=== PATIENT | female | born 1940 | race Caucasian/White ===

== ENCOUNTER → 2017-02-01 | Day surgery (SDC) | payer OTHER ==
[~2017-02-01] MED LIST: BUPIVACAINE/EPINEPHRINE 0.5% 50 ML VIAL ONE; LACTATED RINGER'S 1000 ML INJ 1,000 ML ONE; ceFAZolin 2 GM PREMIX 50 ML ONE
== END | disposition home or self-care (01) ==
LOC: ESDC 08:30
PROVIDERS: ATTEND Surgery Trauma Surgery
DX: N63 Unspecified lump in breast (principal)
CPT/HCPCS: 99211; G0463; J0690; J7120

== ENCOUNTER → 2017-03-01 | Day surgery (SDC) | payer OTHER ==
[~2017-03-01] MED LIST changes: +ACETAMINOPHEN/HYDROcodone 325 MG/5 MG TAB ONE; -BUPIVACAINE/EPINEPHRINE 0.5% 50 ML VIAL ONE; +BUPIVACAINE/EPINEPHRINE 0.5% PF 30 ML VIAL ONE; +ISOSULFAN BLUE 50 MG/5 ML VIAL SQ ONE; +MIDAZOLAM HCL 2 MG/2 ML VIAL ONE; +MORPHINE SULFATE 4 MG/ML INJ ONE; +NEOMYCIN/POLYMYXIN/BACITRACIN OINT 15 GM TUBE ONE; +ONDANSETRON HCL 4 MG/2 ML VIAL IV PUSH ONE; +PROPOFOL 200 MG/20 ML AMP IV ONE
--- NOTE | 2017-03-03 13:52 | MP ---
cc: NOAH MORGAN M.D. Corrected Copy: 03/22/17 OPERATION DATE 03/01/2017 PREOPERATIVE DIAGNOSIS Left breast cancer. POSTOPERATIVE DIAGNOSIS Left breast cancer. PROCEDURE PERFORMED 1. Needle-localized left breast lumpectomy. 2. Injection and excision sentinel lymph node left axilla. SURGEON Noah Morgan MD CASEWORKER INTAKE Reji Oswald, MS III ANESTHESIA General LMA. COMPLICATIONS None. INDICATIONS FOR PROCEDURE Ms. Jaimes is a very pleasant 76-year-old female who was found to have a left breast mass. She underwent imaging and biopsy and this was found to be a left breast cancer. She underwent MRI where additional lesions were identified. These lesions were all biopsied and found be benign. The patient was seen back in the office and offered lumpectomy versus mastectomy and the patient elected lumpectomy. The risks and benefits of left lumpectomy were discussed with her and her and they were agreeable. He we also discussed sentinel lymph node excision and they were agreeable to this as well. DETAILS The patient was identified, brought to the operating room and placed supine on the operating table. After adequate general anesthesia achieved with LMA, the left breast was injected with 10 cc of isosulfan blue in the wire localization site as well as well as in the periareolar position. The patient had a wire localization from the medial approach to a supra and medial areolar mass. There appeared to be some skin retraction directly over the mass and we therefore elected to excise the overlying skin directly above the mass. Attention was first directed to the axilla where the probe was used to identify the approximate location of the sentinel node. The patient had gone down to Radiology in the morning and had a sentinel node injection but no sentinel nodes were identified with imaging. In the operating room the probe did not show any significant activity in the axilla proper. We therefore made a standard axillary incision after anesthetizing the skin and subcutaneous tissue with 0.25% Marcaine. Dissection was carried down through the subcutaneous tissue into the axilla proper. Immediately we identified some blue channels going to several small blue nodes. These were carefully dissected out and sent as a single specimen as axillary sentinel nodes. All these nodes did contain blue dye and had blue channels going directly to them. There was also an adjacent lymph node package that contained multiple nodes. I went ahead excised this as we did no get any significant activity with the probe and also there were no palpable grossly abnormal nodes. All these sentinel nodes were sent as a package. Once we excised this, by direct palpation there were no palpable nodes within the axilla. By direct visualization we could appreciate no other blue dye going any other place in the axilla. Again using the probe we were unable to identify any radioactivity whatsoever. Overall I felt very confident with the sentinel node excision based on blue dye only as we had retrieved at least three nodes were clearly blue. At this point elected to terminate the axillary portion of the procedure. Because we did dissect out the axilla, I went ahead and placed a 7-Japanese Carlos-Schulte drain after anesthetizing the skin and subcutaneous tissue with 0.25% Marcaine. The axillary incision was then closed in two layers using 3-0 and 4-0 Vicryl. The axilla was infiltrated with 10 cc of 0.25% Marcaine. Sterile dressings were applied. Now attention was directed the left breast. As stated earlier there was some skin retraction just medial to the nipple. I felt we should excise the overlying skin above the lesion. Therefore an elliptical skin incision was used to excise the overlying skin going from the wire medially to the areola. Subcutaneous skin flaps were then raised in all directions using electrocautery Bovie. Using a generous margin, all breast tissue was excised down the level of base of the wire. This specimen was excised in toto. A short stitch was placed on the skin border superior, a long stitch was placed on the skin border lateral and the medial margin was demarcated by the wire which came in from a medial approach. By direct palpation the only margins appeared to be close were the superior and inferior border margins. We therefore went ahead and excised an additional superior margin as well as an inferior margin utilizing electrocautery Bovie. Dr. Carvajal called back to the operating room stating the mass and the clip were within the specimen that we sent originally. At this point by direct palpation there were no other abnormalities in the breast. The breast tissue was then copiously irrigated with normal saline solution. Lumpectomy cavity was then filled with 20 cc of 0.25% Marcaine. Lumpectomy cavity was then closed in two layers using 3-0 and 4-0 Vicryl. Sterile dressings were applied and the patient was awakened and brought to Recovery in stable condition. MD NETTIE Agustin /3:43 PM /2:47 PM
== END | disposition home or self-care (01) ==
LOC: ESDC 06:32
PROVIDERS: ATTEND Surgery Trauma Surgery
DX: C50.912 Malignant neoplasm of unspecified site of left female breast (principal)
CPT/HCPCS: 00400; 01610; 19125; 38525; 38792; 88307; J0690; J2250; J2270; J2405; J3010; J7120; Q9968